=== PATIENT | female | born 1970 | race African-American/Black ===

== ENCOUNTER 2019-06-03 07:50 | Emergency (ER) | payer OTHER ==
[~2019-06-03] VITALS: Ht 152.4 cm; Wt 45.4 kg
--- OUTSIDE RECORDS SUMMARY | 2019-06-03 07:53 | XMS REPORT ---
Author Author [facility] Address Unknown Phone Unavailable Care Team Providers Care Production Solderer Name Role Phone CECILIO TOLENTINO Unavailable Unavailable Problems This patient has no known problems. Allergies, Adverse Reactions, Alerts This patient has no known allergies or adverse reactions. Medications This patient has no known medications. Results Test Description Test Time Test Comments Text Results Atomic Results Result Comments CT, ABDOMEN 2018-11-09 12:48:00 Reason for exam:->BACK PAINBack pain since No NM since Denies dysuriaIs the patient ?->NoWhat is the patient's sedation requirement?->No Sedation FINAL REPORT CT abdomen and pelvis without contrast History: Back pain, hematuria Comparison: none Technique: serial axial imaging was performed without intravenous contrast as per departmental protocol. Multiplanar images are reconstructed and reviewed when indicated. This CT examination is performed using one or more of the following dose reduction techniques: Automated exposure control, adjustment of the mA and /or kV according to patient size, and/or use of iterative reconstruction technique. Findings:Evaluation limited by lack of intravenous contrast. Grossly unremarkable appearance of unenhanced liver, gallbladder, pancreas, spleen, and adrenal glands. A 2 mm punctate calcification is seen within or adjacent to the mid right ureter on axial image 51. There is no associated hydronephrosis. Otherwise, unremarkable appearance of the unenhanced adrenal glands, kidneys, and bladder. No small or large bowel obstruction. No apparent bowel wall thickening. No findings to indicate acute appendicitis. Multiple phleboliths are seen within the pelvis. Free fluid is seen within the pelvic cul-de-sac. Grossly unremarkable appearance of the unenhanced uterus and adnexa. No aggressive osseous lesion. Impression:1. 2 mm punctate calcification within or adjacent to the mid right ureter. (Axial image 51) Differential considerations would include a nonobstructing right ureteral calculus or phlebolith. Recommend correlation with the patient's clinical symptoms.2. Small amount of free fluid within the pelvic cul-de-sac is nonspecific and may be physiologic.3. No additional acute findings. Signed: Ronny Gross MDReport Verified Date/Time: 11/09/2018 12:48:03 Reading Location: [facility] Diagnostic Imaging Reading Room - [place] [id number] TIC FUNCTION PANEL 2018-11-09 11:32:00 TOTAL PROTEIN (BEAKER) (test mquk=358) 7.3 gm/dL 6.0-8.5 ALBUMIN (BEAKER) (test isqp=6384) 3.8 g/dL 3.5-5.0 BILIRUBIN TOTAL (BEAKER) (test bpnq=993) 0.3 mg/dL 0.1-1.2 BILIRUBIN DIRECT (BEAKER) (test ttrl=771) 0.1 mg/dL 0.0-0.4 ALKALINE PHOSPHATASE (BEAKER) (test ebcc=085) 58 U/L 30-115 AST (SGOT) (BEAKER) (test wuok=182) 19 U/L 5-40 ALT (SGPT) (BEAKER) (test ajwt=387) 11 U/L 5-50 BASIC METABOLIC [id number] 11:30:00* Test Item Value Reference Range Comments SODIUM (BEAKER) (test fqut=195) 141 meq/L 135-148 POTASSIUM (BEAKER) (test crib=866) 3.9 meq/L 3.6-5.5 CHLORIDE (BEAKER) (test tbak=957) 110 meq/L 98-106 CO2 (BEAKER) (test tlij=227) 19 meq/L 20-29 BLOOD UREA NITROGEN (BEAKER) (test wbyi=640) 12 mg/dL 10-26 CREATININE (BEAKER) (test fcnt=928) 0.73 mg/dL 0.50-1.20 GLUCOSE RANDOM (BEAKER) (test kfxl=561) 80 mg/dL 70-110 CALCIUM (BEAKER) (test dkmb=903) 9.0 mg/dL 8.5-10.5 EGFR (BEAKER) (test mumz=6398) 104 mL/min/1.73 sq m ESTIMATED GFR IS NOT ACCURATE CREATININE CLEARANCE IN PREDICTING GLOMERULAR FILTRATION RATE. ESTIMATED GFR IS NOT APPLICABLE FOR DIALYSIS PATIENTS. URINALYSIS W/ [id number] 11:15:00* Test Item Value Reference Range Comments COLOR (BEAKER) (test taxj=122) Yellow CLARITY (BEAKER) (test ffwr=654) Clear SPECIFIC GRAVITY UA (BEAKER) (test hgij=258) 1.025 1.001-1.035 PH UA (BEAKER) (test flpx=864) 5.5 5.0-8.0 PROTEIN UA (BEAKER) (test zzui=763) Negative Negative GLUCOSE UA (BEAKER) (test usny=776) Negative Negative KETONES UA (BEAKER) (test cqqc=349) Negative Negative BILIRUBIN UA (BEAKER) (test eewd=552) Negative Negative BLOOD UA (BEAKER) (test nvfl=297) Negative Negative NITRITE UA (BEAKER) (test hnis=654) Negative Negative LEUKOCYTE ESTERASE UA (BEAKER) (test hxtp=786) Negative Negative UROBILINOGEN UA (BEAKER) (test eaoh=474) 0.2 mg/dL 0.2-1.0 BACTERIA (BEAKER) (test jeze=184) Occasional MUCUS (BEAKER) (test kdlv=6845) Moderate RBC UA-MANUAL (BEAKER) (test vlpf=3319) None Seen /HPF WBC UA-MANUAL (BEAKER) (test oxza=2045) <5 /HPF SQUAMOUS EPITHELIAL MANUAL (BEAKER) (test wtke=5646) <5 /HPF SOURCE(BEAKER) (test lzwr=2180) SCREEN, [id number] 11:15:00* Test Item Value Reference Range Comments TEST URINE (BEAKER) (test xvat=500) Negative CBC W/PLT COUNT & AUTO [id number] 11:10:00* Test Item Value Reference Range Comments WHITE BLOOD CELL COUNT (BEAKER) (test aahf=454) 7.4 K/ L 4.0-10.0 RED BLOOD CELL COUNT (BEAKER) (test remg=894) 4.13 M/ L 4.00-5.00 HEMOGLOBIN (BEAKER) (test hyfl=484) 11.8 GM/DL 12.0-15.5 HEMATOCRIT (BEAKER) (test lbru=829) 36.3 % 36.0-46.0 MEAN CORPUSCULAR VOLUME (BEAKER) (test rfdf=250) 87.9 fL 82.0-99.0 MEAN CORPUSCULAR HEMOGLOBIN (BEAKER) (test rpmi=337) 28.6 pg 27.0-33.0 MEAN CORPUSCULAR HEMOGLOBIN CONC (BEAKER) (test xaef=368) 32.5 GM/DL 32.0-36.0 RED CELL DISTRIBUTION WIDTH (BEAKER) (test nrkp=152) 14.5 % 12.0-15.0 PLATELET COUNT (BEAKER) (test duyy=410) 264 K/CU MM 150-430 MEAN PLATELET VOLUME (BEAKER) (test icqf=642) 9.9 fL 6.0-11.5 NUCLEATED RED BLOOD CELLS (BEAKER) (test wbwi=782) 0 /100 WBC 0-0 NEUTROPHILS RELATIVE PERCENT (BEAKER) (test pwho=901) 62 % LYMPHOCYTES RELATIVE PERCENT (BEAKER) (test rnqz=871) 29 % MONOCYTES RELATIVE PERCENT (BEAKER) (test dsvd=114) 8 % EOSINOPHILS RELATIVE PERCENT (BEAKER) (test dori=668) 1 % BASOPHILS RELATIVE PERCENT (BEAKER) (test djlm=024) 0 % NEUTROPHILS ABSOLUTE COUNT (BEAKER) (test odbt=777) 4.56 K/ L 1.80-8.00 LYMPHOCYTES ABSOLUTE COUNT (BEAKER) (test gycv=129) 2.11 K/ L 1.48-4.50 MONOCYTES ABSOLUTE COUNT (BEAKER) (test nisf=787) 0.58 K/ L 0.00-1.30 EOSINOPHILS ABSOLUTE COUNT (BEAKER) (test falv=967) 0.10 K/ L 0.00-0.50 BASOPHILS ABSOLUTE COUNT (BEAKER) (test elzd=587) 0.02 K/ L 0.00-0.20 IMMATURE GRANULOCYTES-RELATIVE PERCENT (BEAKER) (test njkm=8219) 0 % 0-0
[2019-06-03] MEDS ORDERED: ALBUTEROL/IPRATROPIUM 3 ML NEB NEB ONE (08:15)
[2019-06-03] MEDS ORDERED: ALBUTEROL/IPRATROPIUM 3 ML NEB ONE (08:18)
[2019-06-03] MEDS ORDERED: PREDNISONE20 MG PO ×2 (09:03→09:09)
[2019-06-03] MEDS ORDERED: PROAIR HFA INH8.5 GM INH (09:05)
[2019-06-03] MEDS ORDERED: PREDNISONE50 MG PO (09:11)
--- NOTE | 2019-06-03 09:19 | Diagnostic Imaging Report ---
EXAMINATION: CXR 2 VIEW - HOPD INDICATION: Cough COMPARISON: None FINDINGS: LINES/TUBES:None LUNGS:The lungs are well-inflated. No focal consolidation or pulmonary edema. PLEURA:No pleural effusion or pneumothorax. MEDIASTINUM:The cardiomediastinal silhouette appears normal in size and shape. BONES/SOFT TISSUES:No acute osseous injury. ABDOMEN:No free air under the diaphragm. IMPRESSION: No focal pneumonia or pulmonary edema. Signed by: Tabitha Nunn MD on 06/03/2019 9:16 AM
--- NOTE | 2019-06-03 09:22 | NUR ---
Pt reports significant improvement after breathing tx. RR even and unlabored.
[2019-06-03] MEDS ORDERED: TESSALON PERLE100 MG PO (09:27)
[2019-06-03 09:32] VITALS: BP 122/59
== END 2019-06-03 09:36 | disposition home or self-care (01) ==
LOC: FSED 07:50
DX: R05 Cough (principal); J20.9 Acute bronchitis, unspecified; J45.30 Mild persistent asthma, uncomplicated
CPT/HCPCS: 71046; 99283